=== PATIENT | female | born 1965 | race Caucasian/White ===

== ENCOUNTER → 2018-06-24 | Outpatient (CLI) | payer OTHER ==
[~2018-06-24] MED LIST: CRUTCH USE; OXYACE5T PO
== END | disposition home or self-care (01) ==
LOC: LAB EV 10:21 → LAB SHORT 10:21
DX: L02.01 Cutaneous abscess of face (principal)
CPT/HCPCS: 87070; 87075; 87077; 87147; 87186; 87205

== ENCOUNTER 2019-05-13 06:03 | Day surgery (SDC) | payer OTHER ==
[~2019-05-13] VITALS: Ht 162.6 cm; Wt 97.4 kg
[~2019-05-13 06:03] MED LIST changes: +ACET325 PO
--- NOTE | 2019-05-13 06:31 | NUR ---
History, Chart, Medications and Allergies reviewed before start of procedure. Patient confirms NPO status and agrees with scheduled surgery. Patient States Post-Procedure ride home has been arranged with
--- NOTE | 2019-05-13 07:16 | NUR ---
PATIENT TOOK OFF GOLD RINGS AND PLACED IN HER PURSE. INSTRUCTED PATIENT TO HAVE A FAMILY MEMBER HOLD ON TO HER PURSE DURING SURGERY.
--- NOTE | 2019-05-13 09:40 | NUR ---
INTO STEP VIA EDDY. PT A&OX3-DENIES PAIN OR NAUSEA. DRESSING TO RIGHT POSTERIOR SHOULDER C/D/I-LIANA DRAIN TO BULB SUCTION WITH MODERATE AMOUNT OF SANGINOUS DRAINAGE. FEMI INITIATED.
--- NOTE | 2019-05-13 11:20 | NUR ---
Patient up to Ambulate independently. Gait steady. Dressing to procedure site clean, dry, intact with no visible drainage, swelling, erythema or bruising noted. Discharge instructions reviewed with patient. Patient verbalizes understanding. Copy given to patient to take home.PT AND SPOUSE BOTH VERBALIZE AND DEMONSTRATE LIANA DRAIN INSTRUCTIONS. Discharged via wheelchair to private car for ride home.
== END 2019-05-13 11:20 | disposition home or self-care (01) ==
LOC: ORSCMMR 06:03 → ORD 07:30 → ORSCMMR 07:30
PROVIDERS: Surgery
PROC: 0JB70ZZ Excision of Back Subcutaneous Tissue and Fascia, Open Approach (ICD-10-PCS; principal; 2019-05-13 07:30)
DX: D17.1 Benign lipomatous neoplasm of skin and subcutaneous tissue of trunk (principal); E66.01 Morbid (severe) obesity due to excess calories; Z68.37 Body mass index [BMI] 37.0-37.9, adult
CPT/HCPCS: 88304; A9270-GY; J0690; J1100; J2250; J2405; J2704; J2710; J3010; J7120

== ENCOUNTER → 2022-09-12 | Outpatient (CLI) | payer OTHER ==
[2022-09-12 12:31] LABS: BASOPHILS ABSOLUTE AUTO 0.03 K/mm3 (0.00-0.23); BASOPHILS PERCENT AUTO 1 % (0-2); EOSINOPHILS ABSOLUTE AUTO 0.14 K/mm3 (0.00-0.68); EOSINOPHILS PERCENT AUTO 3 % (0-6); Hematocrit 44.8 % (33.0-51.0); Hemoglobin 15.4 g/dL (11.5-16.0); IMMATURE GRAN ABSOLUTE AUTO 0.01 K/mm3 (0.00-0.10); IMMATURE GRAN PERCENT AUTO 0 % (0-1); LYMPHOCYTES ABSOLUTE AUTO 2.42 K/mm3 (0.84-5.20); LYMPHOCYTES PERCENT AUTO 50 % (21-46); MONOCYTES ABSOLUTE AUTO 0.31 K/mm3 (0.16-1.47); MONOCYTES PERCENT AUTO 6 % (4-13); Mean Corpuscular HGB 32.3 pg (26.0-34.0); Mean Corpuscular HGB Conc 34.4 g/dL (31.5-36.5); Mean Corpuscular Volume 94 fL (80-100); Mean Platelet Volume 10.2 fL (9.1-12.4); NEUTROPHILS ABSOLUTE AUTO 1.95 K/mm3 (1.96-9.15); NEUTROPHILS PERCENT AUTO 40 % (41-73); Platelet Count 332 K/mm3 (150-400); RDW Coefficient Variation 12.8 % (11.7-14.2); Red Blood Cell Count 4.77 M/mm3 (3.80-5.20); White Blood Cell Count 4.86 K/mm3 (4.00-11.30)
[2022-09-12 14:02] LABS: Alanine Aminotransfer (ALT/SGP 30 U/L (12-78); Albumin, Blood 3.4 g/dL (3.4-5.0); Albumin/Globulin Ratio 0.8 (0.8-1.8); Alk Phos 108 U/L (50-136); Anion Gap 5 mmol/L (6-16); Aspartate Aminotrans (AST/SGOT 21 U/L (12-37); Bilirubin, Total 1.2 mg/dL (0.1-1.0); Blood Urea Nitrogen 13 mg/dL (8-24); Bun/Creatinine Ratio 20.8 (12.0-20.0); CHOL/HDL RATIO 3.7; CO2, Blood 29 mmol/L (21-32); Calcium, Blood 9.4 mg/dL (8.5-10.1); Chloride, Blood 107 mmol/L (98-108); Cholesterol 234 mg/dL (50-200); Creatinine, Blood 0.63 mg/dL (0.40-1.00); Globulin, Blood 4.1 g/dL (2.2-4.0); Glomerular Filtration Rate 105 (60-); Glucose, Blood 107 mg/dL (70-99); HDL Cholesterol 63 mg/dL (>39); LDL/HDL RATIO 2.3; Low Density Lipoprotein Chol 142 mg/dL (0-110); Potassium, Blood 3.8 mmol/L (3.5-5.5); Sodium, Blood 141 mmol/L (136-145); Total Protein, Blood 7.5 g/dL (6.4-8.2); Triglycerides 144 mg/dL (30-160); Very Low Density Lipoprot Chol 28 mg/dL (6-32)
== END | disposition home or self-care (01) ==
LOC: LAB SHORT 10:46
PROVIDERS: Nurse Practitioner Family
DX: E78.2 Mixed hyperlipidemia (principal)
CPT/HCPCS: 36415; 80053; 80061; 85025

== ENCOUNTER → 2022-12-20 | Outpatient (CLI) | payer OTHER ==
[2022-12-25 11:10] LABS: HPV 16 Negative (Negative); HPV 18 Negative (Negative); HPV OTHER HR TYPES Negative (Negative)
== END | disposition home or self-care (01) ==
LOC: LAB 08:10 → LAB SHORT 08:10
PROVIDERS: Nurse Practitioner Family
DX: Z01.411 Encounter for gynecological examination (general) (routine) with abnormal findings (principal)
CPT/HCPCS: 87624; G0145

== ENCOUNTER 2023-05-24 10:52 | Day surgery (SDC) | payer OTHER ==
[~2023-05-24] VITALS: Ht 162.6 cm; Wt 98.8 kg
[2023-05-24] MEDS ORDERED: Hydroxychloroq200 MG PO (11:20)
--- NOTE | 2023-05-24 12:14 | NUR ---
05/24/23 1214 Bayron Dixon ROPIVACAINE 0.5% 20 MLS MIXED & VERIFIED W/ EPI 0.1 ML (1MG/ML) PER ORDER TO MAKE ROPIVACAINE 0.5% 1:200,000 FOR INJECTION AT OPSITE BY DR HANNON. MULTI DOSE BOTTLE, 10 ML INJECTED.
[2023-05-24 12:58] VITALS: BP 137/83
--- NOTE | 2023-05-24 15:48 | NUR ---
05/24/23 1548 Maureen Maddox 1314 IV INFILTRATED NOTED AFTER NOTIFIED RN OF SWELLING TO THE L FOREARM, RN DISCONTINUED FLUIDS AND IV SITE, CANNULA INTACT. IV SITE SWOLLEN, NO REDNESS NOTED. RN NOTIFIED DR LEO, HE INSTRUCTED US TO APPLY COLD COMPRESS TO ARM. INSTRUCTED TO PATIENT TO ELEVATE HAND, RADIAL PULSE PRESENT AND STRONG, TEMPERATURE TO BILATERAL HANDS EVEN, CAPILLARY REFILL <3 SECONDS. SWELLING WAS NOTABLY LESS AT DISCHARGE TIME OF 1348. PT AND EDUCATED AND VERBALIZED UNDERSTANDING, DENIED ANY FURTHER QUESTIONS OR CONCERNS.
== END 2023-05-24 13:48 | disposition home or self-care (01) ==
LOC: ORSCSDS 10:52
PROVIDERS: Obstetrics & Gynecology
PROC: 0UBG7ZX Excision of Vagina, Via Natural or Artificial Opening, Diagnostic (ICD-10-PCS; principal; 2023-05-24 12:00)
DX: N94.89 Other specified conditions associated with female genital organs and menstrual cycle (principal); N84.2 Polyp of vagina; E66.9 Obesity, unspecified; Z68.37 Body mass index [BMI] 37.0-37.9, adult; Z79.899 Other long term (current) drug therapy
CPT/HCPCS: 88305; A9270; J0171; J2795